=== PATIENT | female | born 1950 | race Caucasian/White ===

== ENCOUNTER 2016-02-17 15:45 | Outpatient (RCR) | payer OTHER | END 2016-03-07 | disposition home or self-care (01) | LOC: PTY 15:45 | DX: G89.29 Other chronic pain (principal); M05.9 Rheumatoid arthritis with rheumatoid factor, unspecified; M22.2X9 Patellofemoral disorders, unspecified knee; Z91.81 History of falling; I10 Essential (primary) hypertension; E11.9 Type 2 diabetes mellitus without complications; Z86.73 Personal history of transient ischemic attack (TIA), and cerebral infarction without residual deficits; M25.512 Pain in left shoulder | CPT/HCPCS: 97110; 97140; G0283 ==

== ENCOUNTER 2016-03-15 10:26 | Outpatient (RCR) | payer OTHER | END 2016-04-04 | disposition home or self-care (01) | LOC: PTY 10:26 | DX: G89.29 Other chronic pain (principal); M05.9 Rheumatoid arthritis with rheumatoid factor, unspecified | CPT/HCPCS: 97110; 97140; G0283 ==

== ENCOUNTER 2017-03-22 09:45 | Outpatient (RCR) | payer OTHER | END 2017-04-04 | disposition home or self-care (01) | LOC: PTY 09:45 | DX: M79.7 Fibromyalgia (principal); M25.561 Pain in right knee; M25.562 Pain in left knee | CPT/HCPCS: 97110; 97112; 97140; 97162; G0283 ==

== ENCOUNTER 2017-04-05 10:05 | Outpatient (RCR) | payer OTHER | END 2017-05-05 | disposition home or self-care (01) | LOC: PTY 10:05 | DX: M79.7 Fibromyalgia (principal); M25.561 Pain in right knee; M25.562 Pain in left knee; I10 Essential (primary) hypertension; E11.9 Type 2 diabetes mellitus without complications; M79.9 Soft tissue disorder, unspecified; M54.9 Dorsalgia, unspecified | CPT/HCPCS: 97110; 97140; G0283 ==

== ENCOUNTER 2017-05-09 08:55 | Outpatient (RCR) | payer OTHER | END 2017-06-04 | disposition home or self-care (01) | LOC: PTY 08:55 | DX: M79.7 Fibromyalgia (principal); M79.1 Myalgia; M25.561 Pain in right knee; M25.562 Pain in left knee; G89.29 Other chronic pain; M05.9 Rheumatoid arthritis with rheumatoid factor, unspecified | CPT/HCPCS: 97110; 97140; G0283 ==

== ENCOUNTER 2017-06-12 10:50 | Outpatient (RCR) | payer OTHER | END 2017-07-05 | disposition home or self-care (01) | LOC: PTY 10:50 | DX: M79.7 Fibromyalgia (principal); M79.1 Myalgia; M25.562 Pain in left knee; M25.561 Pain in right knee; G89.29 Other chronic pain; M05.9 Rheumatoid arthritis with rheumatoid factor, unspecified ==

== ENCOUNTER 2017-07-10 10:50 | Outpatient (RCR) | payer OTHER | END 2017-08-04 | disposition home or self-care (01) | LOC: PTY 10:50 | DX: M79.9 Soft tissue disorder, unspecified (principal) | CPT/HCPCS: 97032; 97110; 97140; G0283 ==